=== PATIENT | male | born 2000 | race Caucasian/White ===

== ENCOUNTER 2019-06-15 13:06 | Emergency (ER) | payer BC, SELFPAY ==
[2019-06-15 13:07] VITALS: BP 134/68; PULSE 70; RESP 12; TEMP 36.7; O2SAT 98; BMI 20.3
--- NOTE | 2019-06-15 13:50 | ED.VIS.GEN ---
History of Present Illness Chief Complaint: Diarrhea Informant: Patient Onset: Weeks Current Severity: Mild Narrative: Patient presents complaining of diarrhea for a week sense of nausea, he was seen in urgent care sent to the emergency department he indicates occasional crampy abdominal pain related to diarrhea he indicates bowel movements sometimes 2 or 3 times in our no blood no fever no cough no antibiotics no exposures to tainted food or sick individuals no past history no GI ailments currently pain-free eat light food such as bread it with no difficulty but if he eats anything like eggs or serrano he has crampy abdominal pain copious diarrhea Past Medical History - Allergies and Home Meds Allergies/Adverse Reactions: Allergies No Known Allergies Allergy (Verified 06/11/17 21:04) Primary Care Physician: Danyelle Fuentes MD [STAFF PHYSICIAN] - Past Medical History: - Smoking Status: Never smoker Review of Systems ROS: - Negative as above General: Denies: Chills, Fever, Sweats Eyes: Denies: Visual changes - bilaterally, Diplopia ENT: Denies: Rhinorrhea, Sore throat Cardiovascular: Denies: Chest pain, Palpitations Respiratory: Denies: Dyspnea, Cough, Dyspnea on exertion Gastrointestinal: Reports: Vomiting, Diarrhea. Denies: Abdominal pain, Nausea, Melena, Hematochezia Genitourinary: Denies: Dysuria, Hematuria, Frequency Musculoskeletal: Denies: Back pain, Extremity Pain Skin: Denies: Rash, Wounds Neurological: Denies: Headache, Weakness, Numbness Physical Exam Vital Signs/Narrative: Vital Signs Temp Pulse Resp BP Pulse Ox 06/15/19 13:07 98.1 F 70 12 134/68 H 98 General: Well nourished, Well developed, No Acute Distress Head: Normocephalic, Atraumatic Eyes: Perrl, EOMI ENT: Moist mucous membranes, No rhinorrhea Neck: Supple, Nontender Cardiovascular: Regular rate, Regular rhythm, No murmurs Respiratory: No distress, CTA bilaterally, Chest nontender Abdomen: Soft, Nontender, Nondistended, Normal bowel sounds Back: Nontender, Normal Inspection Extremities: Nontender, No edema Skin: Normal color, No rash Neurological: Alert, Oriented x3, Cranial nerves II-XII grossly intact, Normal Strength, Normal Sensation Psychological: Normal affect, Normal Mood Diagnostic/Tx/Re-eval - Medical Decision Making Patient's vital signs are unremarkable the abdomen soft nontender he is clinically looks well there is no clinical signs of dehydration given all the above he will receive IV fluid screening labs stool sample for analysis The patient's screening labs are all generally unremarkable she was reports he received IV fluids pending stool sample this time he feels comfortable discharge home to advance diet follow with outpatient providers return for change in symptoms Home stable Impression final Diarrhea, improved ED Disposition - Plan for ED Patient: Diagnosis: Diarrhea Instructions: DIARRHEA, Unk Cause (Adult) Report Pendg Prescriptions: Ondansetron [Zofran Odt] 4 mg PO Q8H PRN PRN #10 tablet PRN Reason: Nausea Referrals: Danyelle Fuentes MD [STAFF PHYSICIAN] -
[2019-06-15] MEDS: 0.9% Normal Saline 1,000 ML 1000 ML IV (14:06)
[2019-06-15] MEDS: Ondansetron 4 MG/2 ML Vial IV (14:12)
[2019-06-15 14:21] LABS: Absolute Lymphocyte Count 1.73 X10^3/uL (0.83-4.51); Absolute Neutrophil Count 2.5 X10^3/uL (2.0-7.7); Basophil# 0.03 X10^3/uL; Basophil% 0.5 % (0-1); Eosinophils% 5.2 % (0-5); Hematocrit 41.5 % (40-54); Hemoglobin 14.4 g/dL (13.0-16.5); Lymphocyte # 1.73 X10^3/ul (4.0); Lymphocyte % 30.2 % (19-41); Mean Corp Hgb Conc 34.7 g/dL (32-36); Mean Corpuscular Hgb 29.9 pg (27.0-32.0); Mean Corpuscular Volume 86.3 fL (80-94); Mean Platelet Vol. 9.4 fl (6.2-12.0); Monocyte# 1.16 X10^3/uL; Monocyte% 20.3 % (0-10); NRBC Flagged by Analyzer 0 % (0-5); Neutrophil # 2.47 X10^3/uL (2.7-7.7); Neutrophil % 43.3 % (47-70); Platelet Count 265 K/mm3 (150-450); RBC Distribution Width CV 11.9 % (11.6-14.6); RBC Distribution Width SD 38.1 fl (35.1-43.9); Red Blood Count 4.81 M/mm3 (4.6-6.2); White Blood Count 5.7 K/mm3 (4.4-11.0)
[2019-06-15 14:32] LABS: ALB/GLOB Ratio 0.7 RATIO (0.9-2.4); AST(SGOT) 13 U/L (15-37); Alanine Aminotransfer ALT/SGPT 16 U/L (16-61); Albumin, Serum 3.2 g/dL (3.2-5.0); Alkaline Phosphatase 66 U/L (45-117); Anion Gap 4 (5-15); BUN 11 mg/dL (7-18); BUN/Creat Ratio 9.2 RATIO (10-20); Calcium,Total 8.6 mg/dL (8.5-10.1); Chloride 106 mmol/L (98-107); EST Glomerular Filtration Rate 81 mL/min (>60); Est Glom Filt Rate - Afr Amer 98 mL/min (>60); Estimated Creatinine Clearance 83.71 ml/min; Globulin 4.3 g/dL (2.2-4.2); Glucose 95 mg/dL (74-106); Lipase 78 U/L (73-393); Potassium 3.7 mmol/L (3.5-5.1); Protein, Total 7.5 g/dL (6.4-8.2); Sodium Level 140 mmol/L (136-145)
--- NOTE | 2019-06-15 15:43 | ED.DEP ---
ED Disposition - Plan for ED Patient: Diagnosis: Diarrhea Instructions: DIARRHEA, Unk Cause (Adult) Report Pendg Prescriptions: Ondansetron [Zofran Odt] 4 mg PO Q8H PRN PRN #10 tab PRN Reason: Nausea Prescription Printed Referrals: Danyelle Fuentes MD [STAFF PHYSICIAN] -
[2019-06-15 16:06] VITALS: BP 102/62; PULSE 58; RESP 18; O2SAT 100
== END 2019-06-15 16:08 | disposition home or self-care (01) ==
PROVIDERS: Emergency Provider Emergency Medicine; Family Provider Family Medicine; PCP Family Medicine
DX: R19.7 Diarrhea, unspecified (principal); R10.9 Unspecified abdominal pain; R11.2 Nausea with vomiting, unspecified
CPT/HCPCS: 80053; 83690; 85025; 96361; 96374; 99284; J7030; J2405

== ENCOUNTER → 2019-08-09 15:24 | Outpatient (CLI) | payer BC, SELFPAY | PROVIDERS: Family Provider Family Medicine; PCP Family Medicine; Visit Provider Family Medicine | DX: R19.7 Diarrhea, unspecified (principal) | CPT/HCPCS: 83630; 87177; 87209; 87493; 87506 ==

== ENCOUNTER 2020-08-20 11:17 | Emergency (ER) | payer OTHER, BC, SELFPAY ==
[2020-08-20 11:19] VITALS: BP 158/96; PULSE 79; RESP 16; TEMP 36.6; O2SAT 100; BMI 25.0
--- NOTE | 2020-08-20 11:30 | RAD_ITS ---
STUDY: X-RAY - LEFT HAND, ATTENTION 4 FINGER REASON FOR EXAM: Male, 20 years old. LACERATION TO DISTAL 4TH DIGIT S/P FINGER BEING CAUGHT IN LADDER IT WAS COLLAPSING TECHNIQUE: 3 view(s) of the finger were obtained. COMPARISON: None. FINDINGS: Normal metacarpal head. Normal metacarpophalangeal joint. Normal proximal phalanx. Normal middle phalanx. Nondisplaced fracture at the tuft of the distal phalanx of the fourth digit. Normal proximal interphalangeal joint. Normal distal interphalangeal joint. Soft tissue laceration overlying the distal phalanx of the fourth digit. RAD/Finger(s) Min 2 Views IMPRESSION: Soft tissue laceration. There is a nondisplaced fracture of the tuft of the distal phalanx of the fourth digit. Electronically Signed: Jn Godinez, at 11:58 EST , Service support ,
--- NOTE | 2020-08-20 11:31 | ED.VIS.GEN ---
History of Present Illness Chief Complaint: Upper Extremity Injury Informant: Patient Onset: Today Current Severity: Mild Maximum Severity: Moderate Narrative: Patient presents with injury to the left fourth finger. He was at work when it got caught in an extension ladder. Patient denies any other injury. He is right-hand dominant. He reports his tetanus is up-to-date. Past Medical History - Allergies and Home Meds Allergies/Adverse Reactions: Allergies No Known Allergies Allergy (Verified 08/20/20 11:18) Primary Care Physician: Alexandra Shaffer MD [Primary Care Provider] - Past Medical History: None Smoking Status: Never smoker Review of Systems General: Denies: Chills, Fever Eyes: Denies: Visual changes - bilaterally ENT: Denies: Bilateral ear pain Cardiovascular: Denies: Chest pain Respiratory: Denies: Dyspnea, Cough Gastrointestinal: Denies: Abdominal pain Musculoskeletal: Reports: Extremity Pain Skin: Reports: Wounds Neurological: Denies: Headache Hematologic: Denies: Easy bruising, Easy bleeding Allergy: Denies: Uticaria Physical Exam Vital Signs/Narrative: Vital Signs Temp Pulse Resp BP Pulse Ox 08/20/20 11:19 97.8 F 79 16 158/96 H 100 Inital Vital Signs reviewed: Yes General: Well nourished, Well developed Head: Normocephalic ENT: Moist mucous membranes Cardiovascular: Regular rate, Regular rhythm Respiratory: No distress, CTA bilaterally Abdomen: Soft, Nontender Extremities: - - 1 cm U-shaped laceration along the ulnar aspect of the distal phalanx, fourth finger on the left hand. Nail is stable. Neurological: Alert, Oriented x3 Psychological: Normal affect Diagnostic/Tx/Re-eval Impressions Finger X-Ray 08/20/20 11:30 IMPRESSION: Soft tissue laceration. There is a nondisplaced fracture of the tuft of the distal phalanx of the fourth digit. Electronically Signed: Jn Godinez, at 11:58 EST , Service support , 08/20/20 11:30 Finger(s) Min 2 Views [RAD] Stat - Medical Decision Making Digital block performed with 3 cc 1% lidocaine. Wound is cleansed. There is a 1 cm U-shaped laceration on the ulnar aspect of the distal phalanx abutting the nail border. Nail is stable. 3 simple interval sutures with 5-0 nylon are placed. Wound is dressed. Radiology does see a nondisplaced fracture and he was placed in AlumaFoam splint. He will follow-up with Worker's Comp. and will be covered with Keflex secondary to open fracture. Procedures - Lacerations No standard instances Length: 0.39 in Depth: Skin Laceration repair: Digital block Number of Sutures/Buckner: 3 Suture Information: Ethilon, 5-0 ED Disposition - Plan for ED Patient: Disposition: Home or Assisted Living Diagnosis: Crush injury to finger, Open fracture of finger Prescriptions: Cephalexin [Keflex] 500 mg PO Q12 #14 cap Transmission Status: Pending to [id number] Referrals: [facility] [GROUP OF PHYSICIANS] - 5 Days for suture removal
--- NOTE | 2020-08-20 11:33 | ED.RN ---
CALLED [employer]STIN AT [phone], WAS UNABLE TO TALK TO HIM ABOUT POST ACCIDENT DRUG SCREEN, A MESSAGE WAS LEFT FOR HIM TO CALL BACK TO MAIN ED.
[2020-08-20 13:15] VITALS: RESP 18
== END 2020-08-20 13:18 | disposition home or self-care (01) ==
PROVIDERS: Emergency Provider Emergency Medicine; PCP Family Medicine
DX: S62.665B Nondisplaced fracture of distal phalanx of left ring finger, initial encounter for open fracture (principal); S61.215A Laceration without foreign body of left ring finger without damage to nail, initial encounter; S67.195A Crushing injury of left ring finger, initial encounter; W23.0XXA Caught, crushed, jammed, or pinched between moving objects, initial encounter; Y93.9 Activity, unspecified; Y92.9 Unspecified place or not applicable
CPT/HCPCS: 12001; 73140; 99284

== ENCOUNTER 2021-12-16 05:42 | Day surgery (SDC) | payer BC, SELFPAY ==
[2021-12-16] VITALS (11 sets, daily range): BP systolic 121–142; BP diastolic 72–90; PULSE 59–89; RESP 16–18; TEMP 36.9–37.3; O2SAT 100; BMI 24.1
[2021-12-16] MEDS: Lactated Ringers 1,000 ML 15 ML IV ×3 (06:30→12:51)
--- NOTE | 2021-12-16 07:05 | PCM.HP.BLA ---
History and Physical Date of Admission: 12/16/21 Intake Vital Signs 11/30/21 14:36 Height 5 ft 8 in Weight: 160 lb BMI 24.3 BP 139/83 H Blood Pressure Location Rt brachial Position Sitting Respiration 18 Intake Visit Reasons: L Inguinal Hernia Chief Complaint: left inguinal hernia Sliver Lapper Required: No Is patient in pain?: No Allergies No Known Allergies Allergy (Verified 11/30/21 14:34) Medications ascorbic acid (vitamin C) 500 mg capsule mg PO 11/30/21 [History Confirmed 11/30/21] cetirizine 10 mg tablet 10 mg PO DAILY PRN 11/30/21 [History Confirmed 11/30/21] cholecalciferol (vitamin D3) 125 mcg (5,000 unit) capsule 125 mcg PO DAILY 11/30/21 [History Confirmed 11/30/21] magnesium 250 mg tablet 250 mg PO DAILY 11/30/21 [History Confirmed 11/30/21] valacyclovir 1 gram tablet 1,000 mg PO DAILY 11/30/21 [History Confirmed 11/30/21] zinc 50 mg tablet 50 mg PO DAILY 11/30/21 [History Confirmed 11/30/21] PFSH Medical History Herpes infection Surgical History S/P wisdom tooth extraction Family History Grandfather Heart disease Social History Smoking Status: Never smoker alcohol intake: current HPI HPI HPI: JOSE SUTHERLAND, is a 21 M who presents to the office today for left groin pain and bulging. Patient reports is been going on for few weeks. There is no pain in the right groin. Patient does not have any radiation of pain but he reports that lifting causes the pain to recur. ROS General General: No weight change, appetite, fatigue, colon cancer, breast cancer or weakness HEENT HEENT: No difficulty swallowing, eye injury, eye surgery, swollen glands or hoarseness Endo Endocrine: No thyroid disease, diabetes mellitus, thyroid cancer, Hair loss, heat intolerance or cold intolerance Skin Skin: No rash or changing moles Breast Breast: No left breast lump, right breast lump, nipple discharge, breast pain, abnormal mammogram, abnormal US or breast enlargement Musc Musculoskeletal: Yes back problems; No arthritis, rheumatoid arthritis, gout or joint pain Cardio Cardiovascular: No murmur, pacemaker, heart disease, atrial fibrillation, high blood pressure, heart attack, heart stent, palpitations, shortness of breat with exertion or chest pain Psych Psychiatric: No depression, anxiety or hearing voices Resp Respiratory: No shortness of breath, No sleep apnea, No cough, No COPD, No asthma, No emphysema and No wheezing Gastro Gastrointestinal: No abdominal pain, No nausea or vomiting, No diarrhea, No constipation, No blood in stool, No acid reflux, No hemorrhoids, No ulcers, No gallbladder problem and No black,tarry stools Fitz Hematologic: No blood thinners, No blood disorders, No bleeding, No anemia and No blood clots Neuro Neurologic: No system reviewed and no additional complaints, except as documented, No as per HPI, No abnormal gait, No abnormal hearing, No abnormal movements, No abnormal speech, No behavioral changes, No burning sensations, No confusion, No convulsions, No disequilibrium, No dizziness, No localized weakness, No frequent falls, No headache(s), No lack of coordination, No loss of vision, No memory loss, No numbness, No other visual disturbances, No radicular pain, No restless legs, No sensory deficit, No syncope, No tingling, No tremor(s), No weakness and No other Exam Const General: cooperative Orientation: alert and oriented x3 HENMT Head: normal to inspection Neck Neck: normal visual inspection and full ROM Chest Chest palpation & inspection: normal inspection of the chest Resp Effort & Inspection: normal respiratory effort Auscultation: clear to auscultation bilaterally Cardio Rate: regular rate Rhythm: regular rhythm GI Inspection: non-distended Palpation: soft, hernia indirect inguinal on the left and nontender Skin General: no rashes or lesions noted Neuro General: patient alert and patient oriented x3 Extrem General: full ROM Psych Appearance: grossly normal Mental Status: mental status grossly normal Assessment and Plan Assessment and Plan (1) Left inguinal hernia: Status: Acute Plan - Dr. Luis Carlos Montanez MD: Patient is a small left inguinal hernia. The inguinal canal feels lax and I do appreciate bulging with coughing and Valsalva. I discussed robotic assisted laparoscopic inguinal hernia repair with mesh. I discussed the risks including but not limited to bleeding, infection, injury to underlying bowel or spermatic cord or bladder. I discussed chronic groin pain and mesh placement with the patient as well. I also discussed injury to the spermatic cord or blood vessels. Patient understands the risks and is willing to proceed. I did discuss contralateral repair and the patient would like a contralateral hernia repaired if it is present. Luis Carlos Montanez MD Pager: [facility] [address] [place] [id number] [address] [place] [address] Office: I have seen and reexamined the patient and there are no changes
[2021-12-16] MEDS: Cefazolin 2 GM in 0.9% Normal Saline 100 ML IV (07:24)
[2021-12-16] MEDS: Bupivacaine Mpf 0.5% 30 ML VIAL (08:15)
--- NOTE | 2021-12-16 08:26 | PCM.OPRPT ---
Problems Associated Problem List Diagnoses (1) Left inguinal hernia: Report of Operation Date of Procedure: 12/16/21 Pre-Operative Diagnosis: Left inguinal hernia Post-Operative Diagnosis: Same Surgery/Procedure Performed:: Robotic assisted laparoscopic left inguinal hernia repair with mesh Description of Procedure: Patient was brought back to the operating room and general anesthesia was induced. The abdomen was prepped and draped in usual sterile fashion. Superior to the umbilicus a vertical incision was made and deepened to the fascia which was elevated and then a Veress needle was placed into the abdomen. A drop test was performed and was normal. The abdomen was then insufflated 15 mmHg. The Veress needle was removed and a port was placed to this incision and the abdomen was inspected and there were no injuries from entry. Next under direct visualization a right lateral 8 mm port was placed as well as a left lateral 8 mm port. Next the patient was placed in Trendelenburg position and the robot was docked. The peritoneum in the left lower quadrant was incised with electrocautery scissors and dissection was carried inferiorly until the hernia sac was identified. During dissection of the hernia sac there was a small hydrocele which was drained. The hernia sac was dissected free and reduced into the abdomen and dissection was carried inferiorly. Next a piece of ProGrip mesh was unfolded in the left inguinal region completely covering the hernia. The peritoneum was then reapproximated over the mesh completely covering the mesh and sutured in place using a running 3 OV lock suture. Next the robot was undocked and the abdomen was allowed to desufflate. The ports were removed. The incisions were injected with local anesthetic and closed with interrupted 4-0 Monocryl suture. Steri-Strips and bandages were then applied. Scrotum was checked at the end of the case and contained both testicles. Patient was awoken taken to PACU in stable condition. Grafts/Implants Used: ProGrip mesh in the left groin Admit VTE Documentation VTE Mechan Device Prophylaxis: SCD's
--- NOTE | 2021-12-16 08:31 | EX.PCM.DISCH ---
Discharge Instructions Procedure Hernia Diet Discharge Diet: Light diet - advance as tolerated Activity Discharge Activity: May Not Drive (for 2-3 days or while taking narcotic pain meds.) and May Shower (with the bandage in place 1-2 days after surgery.) Lifting Restrictions: 20 pounds for 4 weeks. Additional Activity Instructions:: Climbing stairs is fine, walking is encouraged. Sitting in bed may be uncomfortable. Sitting up using your lateral muscles (sitting up sideways) is usually more comfortable. Do not drive, work heavy equipment of sign legal documents for 24 hours. If your hernia repair was an ingunial repair, you may have scrotal swelling, an ice pack and/or athletic support can provide more comfort. Pain medications may cause nausea, you should typically eat light foods as you take your pain medications. Pain medications may also cause constipation. If you have difficulty with this, discuss with your doctor. Dressing / Incision Call your doctor if your incision/area has: Continuous Slow Oozing, Sudden Increased Bleeding, Increased Pain/ Swelling, Increased Redness and Foul Smelling Discharge Call your doctor if you observe: Fever of 101 or Higher Suture Line Care: Avoid Pulling/Pushing and Avoid Pinching/Bending Remove Dressing in: 2 days (Remove clear bandages in 2 days, remove Steri-Strips in 7 to 10 days.) Cleanse incision/area with: Soap & Water Follow Up Care Please Follow Up With: Luis Carlos Montanez MD When: Please call to schedule 2 week follow up appointment. [phone] Test Results: Test results from this visit will be discussed in further detail at your follow-up appointment, if applicable. Discharge Plan Admission Attending Provider: Luis Carlos Montanez Primary Care Provider: Alexandra Shaffer Discharge Orders/Prescriptions Prescriptions: New oxycodone-acetaminophen [Percocet] 5-325 mg tablet 1 tab PO Q4H PRN (Reason: pain) 5 Days Qty: 15 RF: 0 No Action valacyclovir [Valtrex] 1 gram tablet 1,000 mg PO PRN PRN (Reason: COLD SORE) RF: 0 ascorbic acid (vitamin C) 500 mg capsule 500 mg PO DAILY RF: 0 cholecalciferol (vitamin D3) 125 mcg (5,000 unit) capsule 125 mcg PO DAILY RF: 0 zinc 50 mg tablet 50 mg PO DAILY RF: 0 magnesium 250 mg tablet 250 mg PO DAILY RF: 0 cetirizine [Zyrtec] 10 mg tablet 10 mg PO DAILY PRN (Reason: ALLERGIES) RF: 0 Referrals / Follow Up: Alexandra Shaffer MD [Primary Care Provider] - Disposition Disposition (needs filled in before D/C Order can be placed): Home, Self Care
[2021-12-16] MEDS: Acetaminophen 500 MG Tablet 1000 MG PO (12:30)
[2021-12-16] MEDS: oxyCODONE 5 MG Tablet PO (13:48)
== END 2021-12-16 23:59 | disposition home or self-care (01) ==
LOC: SDC 05:43 → AC 05:43
PROVIDERS: PCP Family Medicine; Referring Provider Surgery; Visit Provider Surgery
PROC: 0YQ64ZZ Repair Left Inguinal Region, Percutaneous Endoscopic Approach (ICD-10-PCS; CPT 49650; principal; 2021-12-16 07:10)
DX: K40.90 Unilateral inguinal hernia, without obstruction or gangrene, not specified as recurrent (principal)
CPT/HCPCS: 49650; S2900; 00840; 87426; C9803; J7120; J2405

== ENCOUNTER 2024-02-12 20:40 | Emergency (ER) | payer BC, OTHER, SELFPAY ==
[2024-02-12 20:40] VITALS: BP 120/84; PULSE 64; RESP 16; TEMP 36.3; O2SAT 97; BMI 25.6
[2024-02-12] MEDS: Lidocaine 1% (20 ml mdv) 20 ML Vial INFILT (21:34)
--- NOTE | 2024-02-12 22:03 | EDS_ITS ---
HPI <DINA Esp[place] - Last Filed: 02/12/24 22:06> History of Present Illness Chief Complaint: Laceration Narrative Narrative: Patient is a 23-year-old male with no significant medical history, patient presents to the emergency department after a laceration occurring to his right hand. Patient states he was sharpening a ax when something slipped, and he cut the dorsal aspect of his hand just below the fifth digit. Secondary to the bleeding, he figured he needed to come in and get sutures. He is unsure of his last tetanus vaccination. PFS <DINA [place] - Last Filed: 02/12/24 22:06> [facility] Medical History Alcohol use Back pain Herpes infection Non-smoker Wears contact lenses Home Medications ascorbic acid (vitamin C) 500 mg capsule 500 mg PO DAILY 11/30/21 [History Last Taken 12/15/21] cetirizine 10 mg tablet (Zyrtec) 10 mg PO DAILY PRN ALLERGIES 11/30/21 [History Last Taken 12/15/21] cholecalciferol (vitamin D3) 125 mcg (5,000 unit) capsule 125 mcg PO DAILY 11/30/21 [History Last Taken 12/15/21] magnesium 250 mg tablet 250 mg PO DAILY 11/30/21 [History Last Taken 12/15/21] valacyclovir 1 gram tablet (Valtrex) 1,000 mg PO PRN PRN COLD SORE 11/30/21 [History Last Taken 12/15/21] zinc 50 mg tablet 50 mg PO DAILY 11/30/21 [History Last Taken 12/15/21] oxycodone-acetaminophen 5 mg-325 mg tablet (Percocet) 1 tab PO Q4H PRN pain 5 days #15 tabs 12/16/21 [Rx Last Taken Unknown] Allergy/AdvReac Type Severity Reaction Status Date / Time No Known Allergies Allergy Verified 02/12/24 20:42 Family History Grandfather Heart disease Surgical History S/P left inguinal hernia repair S/P wisdom tooth extraction Social History Smoking Status: Never smoker alcohol intake: current ROS <DINA [place] - Last Filed: 02/12/24 22:06> ROS ED ROS Narrative Constitutional: Negative for fever, chills, weight loss, weakness Eyes: Negative for vision loss, vision change, double vision ENT: Negative for any sore throat, ear pain, congestion Cardiovascular: Negative for any chest pain, tightness, palpitations Respiratory: Negative for any cough, sputum production, hemoptysis, dyspnea, dyspnea on exertion, orthopnea Gastrointestinal: Negative for any abdominal pain, nausea, vomiting, diarrhea, constipation, blood in stool, blood in vomit : Negative for any urinary frequency, dysuria, retention, blood in urine Muscle skeletal: Negative for any neck pain, back pain Neurological: Negative for any headache, syncope, dizziness Skin: Negative for any rashes, itching, abrasions. Positive laceration to the right hand Psychiatric: Negative for any depression, anxiety, stress, suicidal ideation, homicidal ideation Hematologic: Negative for any excessive bruising, easy bleeding EXAM <DINA [place] - Last Filed: 02/12/24 22:06> Physical Exam Narrative Exam Narrative: Vital signs reviewed. Extremities: No peripheral edema, no signs of gross trauma or deformity. Active full range of motion of all extremities. Patient is a 1.5 cm laceration to the dorsal aspect of the right hand, this is on the ulnar aspect just below the fifth digit. Patient has full range of motion of his hand. This laceration will need sutures. Neuro: Cranial nerves II through XII intact, no focal neurological deficits. Skin: Clean dry and intact with no rash, purpura, petechiae, vesicles or pustules. Backs/flank: No CVA tenderness, no midline spinal tenderness, no deformity. Psych: Normal mood and affect. No SI, HI or acute psychosis. Const Vital Signs: 02/12/24 20:40 Temperature 97.4 F L Temperature Source Temporal Pulse Rate 64 Respiratory Rate 16 Blood Pressure 120/84 H Blood Pressure Mean 96 Pulse Ox 97 Oxygen Delivery Method Room Air <Dr. Chau Salazar, DO - Last Filed: 02/12/24 23:13> Physical Exam Const Vital Signs: 02/12/24 20:40 Temperature 97.4 F L Temperature Source Temporal Pulse Rate 64 Respiratory Rate 16 Blood Pressure 120/84 H Blood Pressure Mean 96 Pulse Ox 97 Oxygen Delivery Method Room Air [facility] <DINA [place] - Last Filed: 02/12/24 22:06> [facility] Treatment and Re-Evaluation Narrative: Differential diagnosis includes however is not limited to: Foreign body, simple laceration, tendon involvement, fracture, open Patient appears generally well, patient appears nontoxic, vital signs are stable. Presenting to the emergency department for complaints of laceration of the right hand. This looks like a simple laceration, will need sutures. I do not believe that any imaging is necessary. Laceration is roughly 1.5 cm in length. This area was anesthetized, copiously irrigated with 200 cc of normal saline. It was explored, no foreign body noted. I was able to place 4 simple ruptured sutures of 4-0 Ethilon. These will be taken out in 10 days. He is instructed to return for any worsening symptoms. All questions answered, stable for discharge. <Dr. Chau Salazar DO - Last Filed: 02/12/24 23:13> [facility] Narrative Medical decision making narrative: I have personally performed a face to face assessment of the patient and have reviewed the BARTOLO Note. I performed a substantive portion of the visit including all aspects of the following. My flower findings include: History: Patient presents with a laceration to his right hand that occurred today. Patient was sharpening an ax when it slipped and cut his right hand. Patient states that the bleeding has been persistent. Patient denies any paresthesias or weakness. Patient denies any foreign bodies. Patient is unsure of his last tetanus. Patient denies any other injuries. Exam: Vital signs are stable. Patient is afebrile. Patient is in no acute distress. Skin is warm and dry. There is a 1.5 cm full-thickness linear laceration over the dorsal aspect of the right hand over the distal fifth metacarpal. There is moderate gapping of the wound margins. There is mild bleeding noted. There are no foreign bodies noted. There is no tendon laceration visualized. Strength is 5/5 in flexion and extension of the MCP, PIP, and DIP joints of the right fifth finger. Sensation was intact to light touch in all digits. Capillary refill was less than 2 seconds in all digits. Medical Decision Making: Patient was given a tetanus booster. The wound was cleaned and irrigated with copious amounts normal saline. The wound was anesthetized with 1% lidocaine locally. The wound was closed by the BARTOLO under my supervision. Patient tolerated the procedure well. Bacitracin dressing was applied. Patient was instructed to keep the wound clean and dry. Patient was instructed to follow-up with his primary care physician in 7-10 days for wound recheck and suture removal. Patient understood and was agreeable with the plan. All questions were answered. Discharge Plan Triage Chief Complaint: Laceration ED Midlevel Provider: Fabián Hughes ED Provider: Chau aSlazar Dx/Rx/DC Orders Clinical Impression: Hand laceration Instructions: ED Laceration Extremity Prescriptions: No Action valacyclovir [Valtrex] 1 gram tablet 1,000 mg PO PRN PRN (Reason: COLD SORE) ascorbic acid (vitamin C) 500 mg capsule 500 mg PO DAILY cholecalciferol (vitamin D3) 125 mcg (5,000 unit) capsule 125 mcg PO DAILY zinc 50 mg tablet 50 mg PO DAILY magnesium 250 mg tablet 250 mg PO DAILY cetirizine [Zyrtec] 10 mg tablet 10 mg PO DAILY PRN (Reason: ALLERGIES) oxycodone-acetaminophen [Percocet] 5-325 mg tablet 1 tab PO Q4H PRN (Reason: pain) 5 Days Qty: 15 0RF Primary Care Provider: Alexandra Shaffer Referrals: Alexandra Shaffer MD [Primary Care Provider] - Activity Restrictions/Additional Instructions: Your tetanus vaccine was updated today. Have the sutures removed in 10 days. Keep clean and dry. Disposition Disposition: Home, Self Care
[2024-02-12 22:15] VITALS: BP 112/72; PULSE 76; RESP 18; TEMP 36.4; O2SAT 99
== END 2024-02-12 22:16 | disposition home or self-care (01) ==
PROVIDERS: Emergency Provider Emergency Medicine; PCP Family Medicine; Visit Provider Emergency Medicine
DX: S61.411A Laceration without foreign body of right hand, initial encounter (principal); W27.0XXA Contact with workbench tool, initial encounter; Y93.89 Activity, other specified; Z23 Encounter for immunization
CPT/HCPCS: 12001; 90715; 99282